=== PATIENT | female | born 1945 | race Caucasian/White ===

== ENCOUNTER → 2022-02-10 | Outpatient (CLI) | payer MEDICARE ==
[2022-02-10 09:14] LABS: HEMOGLOBIN 14.3 gm/dl (12.3-15.3); RED BLOOD COUNT 4.6 M/UL (4.00-5.10); WHITE BLOOD COUNT 7.2 K/UL (4.5-11.0)
[2022-02-10 10:01] LABS: BUN/CREATININE RATIO 12 (0-10)
[2022-02-11 08:18] LABS: THYROXINE (T4) 9.3 ug/dL (4.5-12.0)
== END ==
LOC: LAB 08:30
PROVIDERS: Nurse Practitioner
DX: I10 Essential (primary) hypertension (principal); E78.5 Hyperlipidemia, unspecified; E55.9 Vitamin D deficiency, unspecified; R53.83 Other fatigue
CPT/HCPCS: 36415; 80053; 80061; 80076; 81001; 84436; 84443; 84480; 85025